=== PATIENT | male | born 1990 | race Caucasian/White ===

== ENCOUNTER 2020-06-08 11:53 | Outpatient (REF) | payer OTHER, SELFPAY | END 2020-06-08 11:54 | disposition home or self-care (01) | LOC: HO.LAB 11:53 | PROVIDERS: Visit Provider Internal Medicine | DX: Z13.89 Encounter for screening for other disorder (principal) ==

== ENCOUNTER 2020-09-16 22:22 | Emergency (ER) | payer OTHER, SELFPAY ==
--- NOTE | 2020-09-16 | ECG_ITS ---
Test Reason : CHEST PAIN Blood Pressure : / mmHG Vent. Rate : 066 BPM Atrial Rate : 066 BPM P-R Int : 150 ms QRS Dur : 098 ms QT Int : 378 ms P-R-T Axes : 013 050 017 degrees QTc Int : 396 ms Normal sinus rhythm Normal ECG No previous ECGs available Referred By: Generic ED Physician Electronically Signed By:GABRIELLA RING MD
--- NOTE | ~2020-09-16 | XR_ITS ---
EXAMINATION: XR CHEST CLINICAL INFORMATION: r cp ?pneumothorax COMPARISON: None. TECHNIQUE: PA and lateral views of the chest were obtained. FINDINGS: Lungs are clear. No consolidation, pneumothorax, or pleural effusion. Cardiac and mediastinal contours are normal. Pulmonary vasculature is unremarkable. Trachea is midline. Osseous structures are unremarkable. XR/XR chest 2V IMPRESSION: Normal chest radiographs. No pneumothorax.
[2020-09-16 22:25] VITALS: BP 140/78; PULSE 62; RESP 20; O2SAT 97; BMI 28.5
[2020-09-16 22:41] LABS: MANUAL DIFF FLAG NO
[2020-09-16 22:42] LABS: Basophils Percent Auto 0.5 % (0-2); Eosinophils Absolute Auto 0.1 X10*3/uL (0.0-0.4); Eosinophils Percent Auto 1.6 % (0-4); Hematocrit 43.1 % (42-52); Hemoglobin 14.5 g/dl (14.0-18.0); Imm Gran Abs Auto 0.01 X10*3/uL (0.00-0.03); Imm Gran Pct Auto 0.2 % (0.0-0.4); Lymphocytes Absolute Auto 2.5 X10*3/uL (1.2-4.9); Lymphocytes Percent Auto 40.2 % (20-40); Mean Corpuscular HGB Conc 33.6 g/dl (31.0-36.0); Mean Corpuscular Hemoglobin 29.5 pg (27.0-33.0); Mean Corpuscular Volume 87.6 fL (80-98); Monocytes Absolute Auto 0.5 X10*3/uL (0.1-1.2); Monocytes Percent Auto 8.3 % (2-11); Neutrophils Absolute Auto 3.1 X10*3/uL (2.0-8.3); Neutrophils Percent Auto 49.2 % (45-73); Platelet Count 216 X10*3/uL (160-400); Red Blood Count 4.92 X10*6/uL (4.60-5.80); Red Cell Distribution Width 12.4 % (11.0-16.0); White Blood Count 6.3 X10*3/uL (4.8-10.8)
--- NOTE | 2020-09-16 23:01 | ED.CHESTPAIN ---
HPI - Chest Pain General Chief Complaint: Chest Pain Stated Complaint: Chest pain Time Seen by Provider: 09/16/20 23:01 Source: patient Mode of arrival: ambulatory Limitations: no limitations History of Present Illness HPI narrative: patient no significant past medical history noticed slight discomfort in the right chest since yesterday evening today got worse around 07:00 o'clock noticed increased pain when he takes deep breath feels slight short of breath no fever no cough no left chest pain no palpitation no history of cocaine use Related Data Home Medications Medication Instructions Recorded Confirmed No Known Home Meds 02/25/20 02/25/20 Allergies Allergy/AdvReac Type Severity Reaction Status Date / Time No Known Allergies Allergy Verified 02/25/20 16:47 Review of Systems Review of Systems: Yes all other systems are reviewed and are negative [facility] Past Medical History Medical History No known health problems Surgical History History of wisdom tooth extraction Family History Family History Father Overweight Mother Overweight Brother No problems noted. Sister No problems noted. Maternal Grandmother No problems noted. Maternal Grandfather Hiatal hernia Paternal Grandmother No problems noted. Paternal Grandfather No problems noted. Social History Social History Alcohol intake: current Alcohol intake frequency: holidays/special occasions only Advance Directives: No Physical Exam Vital Signs: Vital Signs: Last Vital Signs Pulse 62 09/16/20 22:25 Resp 20 09/16/20 22:25 BP 140/78 H 09/16/20 22:25 Pulse Ox 97 09/16/20 22:25 Body Mass Index 28.5 Appearance: Alert. Oriented X3. No acute distress. Eyes: PERRLA, No Nystagmus ENT: Pharynx normal. Oral Mucosa moist Neck: Normal inspection. Neck supple. CVS: Normal heart rate and rhythm. Pulses normal. Respiratory: No respiratory distress. Equal air entry bilateral, no wheezing/rales/rhonchi Abdomen: Soft and nontender. Bowel sounds are present, no mass palpable, no CVA tenderness Skin: Skin warm and dry. Normal skin color. Normal skin turgor. Extremities: No lower extremity edema. No calf tenderness Neuro: Oriented X 3. No motor deficit. No sensory deficit. MDM - Chest Pain MDM Narrative Medical decision making narrative: patient for more than 24 hours right-sided chest pain chest x-ray negative for pneumothorax EKG normal high sensitive troponin is negative D-dimer negative likely musculoskeletal/pleurisy causing the pain will discharge patient home on ibuprofen Lab Data Attestation: I reviewed the patient's lab results. Result diagrams: 09/16/20 22:37 09/16/20 22:37 Labs: Lab Results 09/16/20 09/16/20 09/16/20 Range/Units 22:37 22:37 22:37 WBC 6.3 (4.8-10.8) X10*3/uL RBC 4.92 (4.60-5.80) X10*6/uL Hgb 14.5 (14.0-18.0) g/dl Hct 43.1 (42-52) % MCV 87.6 (80-98) fL MCH 29.5 (27.0-33.0) pg MCHC 33.6 (31.0-36.0) g/dl RDW 12.4 (11.0-16.0) % Plt Count 216 (160-400) X10*3/uL MPV 10.0 (9.4-12.4) fL Immature Gran % (Auto) 0.2 (0.0-0.4) % Neut % (Auto) 49.2 (45-73) % Lymph % (Auto) 40.2 H (20-40) % [place] % (Auto) 8.3 (2-11) % Eos % (Auto) 1.6 (0-4) % Baso % (Auto) 0.5 (0-2) % Lymph # (Auto) 2.5 (1.2-4.9) X10*3/uL [place] # (Auto) 0.5 (0.1-1.2) X10*3/uL Eos # (Auto) 0.1 (0.0-0.4) X10*3/uL Baso # (Auto) 0.0 (0.0-0.2) X10*3/uL Abs Immat Gran (auto) 0.01 (0.00-0.03) X10*3/uL Absolute Neuts (auto) 3.1 (2.0-8.3) X10*3/uL Absolute Nucleated RBC 0.000 (0.0-0.012) X10*3/uL Nucleated RBC % (auto) 0.0 (0.0-0.2) /100WBC D-Dimer NG/ML Sodium 141 (135-145) mmol/L Potassium 4.0 (3.3-5.1) mmol/L Chloride 107 (96-108) mmol/L Carbon Dioxide 24 (22-29) mmol/L Anion Gap 14 (12-20) BUN 24 H D (9-16) mg/dL Creatinine 1.13 (0.5-1.4) mg/dL Estim Creat Clear Calc 130.3 Estimated GFR > 60 Random Glucose 93 (60-115) mg/dL Troponin I High Sens < 3.5 (<3.5-35.0) ng/L 09/16/20 Range/Units 23:40 WBC (4.8-10.8) X10*3/uL RBC (4.60-5.80) X10*6/uL Hgb (14.0-18.0) g/dl Hct (42-52) % MCV (80-98) fL MCH (27.0-33.0) pg MCHC (31.0-36.0) g/dl RDW (11.0-16.0) % Plt Count (160-400) X10*3/uL MPV (9.4-12.4) fL Immature Gran % (Auto) (0.0-0.4) % Neut % (Auto) (45-73) % Lymph % (Auto) (20-40) % [place] % (Auto) (2-11) % Eos % (Auto) (0-4) % Baso % (Auto) (0-2) % Lymph # (Auto) (1.2-4.9) X10*3/uL [place] # (Auto) (0.1-1.2) X10*3/uL Eos # (Auto) (0.0-0.4) X10*3/uL Baso # (Auto) (0.0-0.2) X10*3/uL Abs Immat Gran (auto) (0.00-0.03) X10*3/uL Absolute Neuts (auto) (2.0-8.3) X10*3/uL Absolute Nucleated RBC (0.0-0.012) X10*3/uL Nucleated RBC % (auto) (0.0-0.2) /100WBC D-Dimer < 200 NG/ML Sodium (135-145) mmol/L Potassium (3.3-5.1) mmol/L Chloride (96-108) mmol/L Carbon Dioxide (22-29) mmol/L Anion Gap (12-20) BUN (9-16) mg/dL Creatinine (0.5-1.4) mg/dL Estim Creat Clear Calc Estimated GFR Random Glucose (60-115) mg/dL Troponin I High Sens (<3.5-35.0) ng/L ECG Data ECG #1: Attestation: I personally reviewed and interpreted this ECG as follows: Interpretation: normal sinus rhythm heart rate 66 beats per minute normal intervals normal axis no acute ischemic changes Discharge Plan Discharge Clinical Impression: Musculoskeletal chest pain, Pleurisy Patient Disposition: Home, Self-Care Instructions: Pleurisy (ED), Musculoskeletal Pain (ED) Additional Instructions: take ibuprofen for pain. Follow with PCP if pain is not better report to the ER if increased shortness of breath /worsening of chest pain Prescriptions: No Action No Known Home Meds RF: 0
[2020-09-16 23:19] LABS: Troponin-I High Sensitivity < 3.5 ng/L (<3.5-35.0)
[2020-09-16 23:29] LABS: Anion Gap 14 (12-20); Carbon Dioxide 24 mmol/L (22-29); Chloride 107 mmol/L (96-108); Sodium 141 mmol/L (135-145)
[2020-09-16 23:41] LABS: Blood Urea Nitrogen 24 mg/dL (9-16); Creatinine Clr Calc Pharmacy 130.3; Estimated Glomerular Filt Rate > 60; Glucose Random 93 mg/dL (60-115)
[2020-09-17 00:06] LABS: D Dimer < 200 NG/ML
[2020-09-17] MEDS: Ibuprofen 800 MG TABLET PO (00:11)
== END 2020-09-17 00:33 | disposition home or self-care (01) ==
PROVIDERS: Emergency Provider Internal Medicine; PCP Nurse Practitioner Family
DX: R07.89 Other chest pain (principal); R09.1 Pleurisy
CPT/HCPCS: 36415; 71046; 80051; 82565; 82947; 84484; 84520; 85025; 85379; 93005; 99283

== ENCOUNTER 2021-03-04 07:22 | Outpatient (REF) | payer OTHER, SELFPAY ==
[2021-03-04 11:42] LABS: Appearance Urine CLEAR; Color Urine YELLOW; Glucose Urine UA NEG (NEG); Leukocyte Esterase Urine NEG (NEG); Nitrite Urine NEG (NEG); Specific Gravity - Urine >= 1.030 (1.005-1.025); Urine Blood NEG (NEG); Urine Ketones NEG (NEG); Urine Protein NEG (NEG-TRACE)
[2021-03-04 12:08] LABS: Alanine Aminotransferase 21 U/L (0-40); Albumin Level 4.8 g/dL (3.5-5.0); Alkaline Phosphatase 41 U/L (39-117); Anion Gap 11 (12-20); Aspartate Amino Transferase 17 U/L (5-37); Bilirubin Total 0.8 mg/dL (0.0-1.0); Blood Urea Nitrogen 14 mg/dL (9-16); Calcium 9.8 mg/dL (8.4-10.2); Carbon Dioxide 28 mmol/L (22-29); Chloride 105 mmol/L (96-108); Cholesterol 187 mg/dL; Estimated Glomerular Filt Rate > 60; Glucose Fasting 89 mg/dL (60-99); HDL Cholesterol 57 mg/dL; LDL Cholesterol Calculated 108 mg/dl; Potassium 4.2 mmol/L (3.3-5.1); Sodium 140 mmol/L (135-145); TSH reflex Free T4 3.57 uIU/mL (0.32-4.0); Total Protein 7.3 g/dL (6.5-8.0); Triglycerides 113 mg/dL
== END 2021-03-04 07:23 | disposition home or self-care (01) ==
LOC: HO.HMGCLDS 07:22
PROVIDERS: PCP Nurse Practitioner Family; Visit Provider Nurse Practitioner Family
DX: Z00.00 Encounter for general adult medical examination without abnormal findings (principal)
CPT/HCPCS: 36415; 80053; 80061; 81003; 84443

== ENCOUNTER 2022-04-15 22:06 | Emergency (ER) | payer OTHER, SELFPAY ==
[2022-04-15 22:18] VITALS: BP 115/62; PULSE 96; RESP 18; TEMP 36.6; O2SAT 96; BMI 30.4
--- NOTE | 2022-04-15 22:23 | ED_ITS ---
HPI - Wound/Laceration General Chief Complaint: Wound/Laceration Stated Complaint: Laceration on pink finger Time Seen by Provider: 04/15/22 22:23 Source: patient Mode of arrival: ambulatory Limitations: no limitations History of Present Illness HPI narrative: 32-year-old male presents with laceration to the palmar aspect of his 5th right finger between the MCP and PIP joints. Onset (ago): hour(s) (Within the hour of arrival) Extremity Location: right: hand (5th finger) Place: home Patient tetanus UTD: Yes Context: accidental Associated symptoms: pain Treatments prior to arrival: bandage Related Data Previous Rx's Medication Instructions Recorded albuterol sulfate 90 mcg/actuation 1 inh inhalation QID PRN shortness 02/22/21 aerosol inhaler of breath or wheezing 30 days #8.5 grams Allergies Allergy/AdvReac Type Severity Reaction Status Date / Time No Known Allergies Allergy Verified 04/15/22 22:21 Review of Systems Review of Systems: Constitutional: No Fever, No Chills Musculoskeletal: positive 5th finger pain, positive 5th finger decreased range of motion Skin: Positive 5th finger laceration Neuro: No Weakness, No Numbness, No Paresthesias Yes all other systems are reviewed and are negative PMFSH Past Medical History Attestation statement: The following information was validated with the patient. Source: old records reviewed Medical History No known health problems Surgical History History of wisdom tooth extraction Family History Family History Father Overweight Mother Overweight Brother No problems noted. Sister No problems noted. Maternal Grandmother No problems noted. Maternal Grandfather Hiatal hernia Paternal Grandmother No problems noted. Paternal Grandfather No problems noted. Social History Social History Housing: House Alcohol intake: current Alcohol intake frequency: holidays/special occasions only Patient Tobacco Use Status: Former Tobacco user e-Cigarette/Vaping Use: Never Used Second Hand Smoke Exposure: Yes Advance Directives: No Advance Directives Information Provided: No service: Yes Current occupational status: employed Current occupation: [employer] Current occupational exposures/hazards: Yes Physical Exam Vital Signs: Vital Signs: Last Vital Signs Temp 97.9 F 04/15/22 22:18 Pulse 96 04/15/22 22:18 Resp 18 04/15/22 22:18 BP 115/62 04/15/22 22:18 Pulse Ox 96 04/15/22 22:18 O2 Del Method 04/15/22 22:18 BMI result Body Mass Index 30.4 Appearance: Alert. Oriented X3. No acute distress. Eyes: Pupils equal, round and reactive to light. Skin: 1 cm laceration between the D IP and MCP joints on the 5th right finger. Extremities: Decreased flexion strength to the 5th finger, full range of motion noted. Brisk capillary refill. Neuro: No motor deficit. No sensory deficit. Cranial nerves 2-12 intact. Course Course Course Narrative: 32-year-old male presents with laceration to his 5th finger while cutting broccoli. His last Tdap vaccine was updated last year. Having a difficult time closing his finger, stating that he has some weakness. Physical exam indicates decreased flexion consistent with tendon laceration. Puncture wound is 0.5 cm in length. Plan is for laceration repair. Prepped and draped in sterile fashion. Irrigated with copious amounts of sterile saline. Betadine cleanse. Three sutures applied. Patient tolerated procedure well. Will have patient follow-up with Dr. Huff hand surgeon. Patient verbalized understanding of and agrees to plan of care discharge home. Verbalized understanding of signs and symptoms indicating need for emergent intervention. Medical Decision Making Differential Diagnosis Differential Diagnoses: The differential diagnosis associated with the presentation includes Laceration, tendon laceration Procedures Laceration Laceration 1: Site: hand (Right 5th finger) Side (If applicable): right Size (cm): 0.5 Description: linear Depth: simple, single layer Local Anesthetic: lidocaine 1% Amount of anesthesia used (mL): 2 Pre-repair: wound explored and irrigated extensively Skin layer closed with: nylon Size (cm): 4-0 Number of sutures: 3 Technique: simple, interrupted Discharge Plan Discharge Clinical Impression: Laceration, Flexor tendon laceration of finger with open wound Patient Disposition: Home, Self-Care Instructions: Finger Laceration (ED), Tendon Laceration (ED) Additional Instructions: You were evaluated for laceration with suspected tendon rupture. We placed 3 sutures to your right 5th finger. Please follow-up with Dr. Lisandra Huff for evaluation for suspected tendon laceration Please return in 10-14 days to have sutures removed. If you notice any signs or symptoms indicating infection please return sooner. Thank you for choosing this emergency department for evaluation. Please follow-up with primary care physician as needed. Return to the emergency department for any new, concerning, or worsening symptoms. Prescriptions: No Action albuterol sulfate 90 mcg/actuation HFA aerosol inhaler 1 inh inhalation QID PRN (Reason: shortness of breath or wheezing) 30 Days Qty: 8.5 2RF Referrals: Alondra Huff MD [Physician] - 3 days (Suspected tendon laceration right finger) Interventions: ED Discharge Assessment Last Done: 04/15/22 23:03 Discharge Date/Time: 04/15/22 23:06
== END 2022-04-15 23:06 | disposition home or self-care (01) ==
PROVIDERS: Emergency Provider Emergency Medicine; PCP Nurse Practitioner Family
DX: S61.216A Laceration without foreign body of right little finger without damage to nail, initial encounter (principal); S56.127A Laceration of flexor muscle, fascia and tendon of right little finger at forearm level, initial encounter; W26.0XXA Contact with knife, initial encounter; Y93.G1 Activity, food preparation and clean up; Y92.030 Kitchen in apartment as the place of occurrence of the external cause; Y99.9 Unspecified external cause status
CPT/HCPCS: 12001; 99282; 99284

== ENCOUNTER → 2022-05-02 10:50 | Outpatient (BNVA) | payer OTHER, SELFPAY | PROVIDERS: PCP Nurse Practitioner Family; Visit Provider Orthopaedic Surgery | DX: S61.216A Laceration without foreign body of right little finger without damage to nail, initial encounter (principal) | CPT/HCPCS: 99202 ==

== ENCOUNTER 2023-05-22 16:29 | Outpatient (AMB) | payer OTHER, SELFPAY ==
--- NOTE | 2023-05-22 16:38 | AM.OFFWIN_ITS ---
Intake Vital Signs 05/22/23 16:39 Height 6 ft 4 in Weight 230 lb BMI 28.0 BP 128/80 Blood Pressure Location Rt brachial Position Sitting Pulse 112 H Pulse Source Pulse Oximeter Pulse Oximetry (%) 95 Oxygen Delivery Method Room Air Intake Visit Reasons: EP neck should rib pain Intake Note: Pt is here today for a walk in visit. Pt c/o neck, shoulder and rib pain. Patient Tobacco Use Status: Former Tobacco user Allergies No Known Allergies Allergy (Verified 05/24/23 06:24) Medication List - Last Reconciled 05/24/23 by Milan Martin MD albuterol sulfate 90 mcg/actuation 1 inh inhalation QID PRN 30 days HPI EP neck should rib pain HPI Details 33-year-old male presents to the office for a sick visit. Patient is active . Patient presents to the office to document his symptoms which are as a result of his training exercises today. Patient is expected to wrestle. He is reporting neck pain, rib pain and bilateral knee pain. These symptoms have been present for the past many months. It flares up after every exercise. He would like to report and document the same symptoms. FORMERLY [facility], [facility]–1983 Medical History No known health problems Surgical History History of wisdom tooth extraction Family History Father Overweight Mother Overweight Brother No problems noted. Sister No problems noted. Maternal Grandmother No problems noted. Maternal Grandfather Hiatal hernia Paternal Grandmother No problems noted. Paternal Grandfather No problems noted. 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/ [employer] Current occupational exposures/hazards: Yes Physical Exam Vital Signs: Last Vital Signs Pulse 112 H 05/22/23 16:39 BP 128/80 05/22/23 16:39 Pulse Ox 95 05/22/23 16:39 Oxygen Delivery Method Room Air 05/22/23 16:39 BMI result Body Mass Index 28.0 Const General: cooperative and healthy appearing Nutritional Appearance: well nourished Orientation/consciousness: patient oriented x3 Limitations: no limitations HEENT Head: Yes normal to inspection Eyes General: appearance normal, both eyes and all related structures Neck Neck: Yes normal visual inspection Chest Chest palpation & inspection: normal palpation of entire chest wall Resp Effort & Inspection: normal respiratory effort Neuro General: patient oriented x3 Assessment & Plan Assessment & Plan (1) Myalgia: Code(s): M79.10 - Myalgia, unspecified site Plan: A letter describing the joints where he had pain was dictated. Patient is expecting no treatment here. A copy of this note will be provided to the patient when the dictation is complete. Coding Level of Care Code Est Pt Level 3 (39912) Diagnoses Myalgia M79.10
[2023-05-22 16:39] VITALS: BP 128/80; PULSE 112; O2SAT 95; BMI 28.0
== END 2023-05-22 17:10 | disposition home or self-care (01) ==
LOC: HO.HMGWI 16:32
PROVIDERS: PCP Nurse Practitioner Family; Visit Provider Internal Medicine
DX: M79.10 Myalgia, unspecified site (principal)
CPT/HCPCS: 99213